=== PATIENT | female | born 1960 | race Caucasian/White ===

== ENCOUNTER → 2017-10-17 | Outpatient (CLI) | payer BC | LOC: M LRY 09:54 | DX: R05 Cough (principal) | CPT/HCPCS: 71046 ==

== ENCOUNTER → 2017-10-17 | Outpatient (REF) | payer BC ==
[2017-10-17 20:47] LABS: INFLUENZA A AMPLIFICATION NEGATIVE (NEGATIVE); INFLUENZA B AMPLIFICATION NEGATIVE (NEGATIVE)
== END ==
LOC: M SFHCLERA 11:54
DX: R53.81 Other malaise (principal)
CPT/HCPCS: 87502

== ENCOUNTER → 2018-12-15 | Outpatient (CLI) | payer BC ==
[~2018-12-15] MED LIST: GLIP10TA PO; LEVO-96 PO; METF-839 PO; MULTCAP PO; VITA500054 PO
[2018-12-15 10:30] LABS: BLOOD UREA NITROGEN 10 MG/DL (7-18); CALCIUM LEVEL 9.1 MG/DL (8.5-10.1); CARBON DIOXIDE LEVEL 29 MEQ/L (21-32); CHLORIDE LEVEL 105 MEQ/L (98-107); CREATININE FOR GFR 0.76 MG/DL (0.55-1.30); GLOMERULAR FILTRATION RATE > 60.0 (>51); GLUCOSE, FASTING 275 MG/DL (70-100); POTASSIUM SERUM 4.1 MEQ/L (3.5-5.1); SODIUM LEVEL 139 MEQ/L (136-145)
--- NOTE | 2018-12-15 20:44 | ECGEPIP ---
Stationary ECG Study [facility] Test Date: 2018-12-15 Pat Name: ALESSANDRO FENG Department: Room: - Gender: F Mach[employer]: [facility] : 1960 Requested By: CAMILA Rehman Order Number: [id number] Reading MD: Yvan Goldstein Measurements Intervals [place] Rate: 74 P: 55 CO: 166 QRS: -11 QRSD: 82 T: 32 QT: 369 QTc: 412 Interpretive Statements Normal sinus rhythm LA conduction disturbance? Leftward axis Slow precordial R-wave progression; rule out prior septal injury. No prior tracing for comparison. Clinical correlation advised. Electronically Signed On 12-15-2018 20:44:05 EDT by Yvan Goldstein
== END ==
LOC: M LAB 09:34
PROVIDERS: ATTEND Orthopaedic Surgery
DX: Z01.810 Encounter for preprocedural cardiovascular examination (principal); E11.9 Type 2 diabetes mellitus without complications

== ENCOUNTER 2018-12-30 08:40 | Day surgery (SDC) | payer BC ==
[~2018-12-30] VITALS: Ht 160 cm; Wt 97.5 kg
[2018-12-30] MEDS ORDERED: ROPIvacaine 0.5% 30 ML INJECTION (J2795 PER 1MG) ONE (08:41)
[2018-12-30] MEDS ORDERED: dexameTHASONE 10 MG/1 ML VIAL PRES.FREE (J1100) ONE (08:41)
[2018-12-30] MEDS ORDERED: EPINEPHrine INJ 1 MG/ML 1ML AMP ONE (08:41)
[2018-12-30] MEDS ORDERED: PROPOFOL 200 MG/20 ML VIAL As Ordered ONE (08:59)
[2018-12-30] MEDS ORDERED: ROCURONIUM BROMIDE 50 MG/5 ML VIAL As Ordered ONE (08:59)
[2018-12-30] MEDS ORDERED: MIDAZOLAM INJ 2 MG/2 ML VIAL (J2250) As Ordered ONE ×2 (08:59→09:35)
[2018-12-30] MEDS ORDERED: dexameTHASONE 4 MG/ML 1ML VIAL (J1100) As Ordered ONE (08:59)
[2018-12-30] MEDS ORDERED: fentaNYL 100 MCG/2 ML INJECTION (J3010) As Ordered ONE ×2 (08:59→09:35)
[2018-12-30] MEDS ORDERED: ONDANSETRON 4MG/2ML VIAL (J2405) As Ordered ONE ×2 (08:59→13:44)
[2018-12-30] MEDS ORDERED: LIDOCAINE 2% INJ 100 MG/5 ML SDV (FOR ANES.) As Ordered ONE (08:59)
[2018-12-30] MEDS ORDERED: LR 1,000 ML IV ONE (09:00)
[2018-12-30] MEDS ORDERED: MIDAZOLAM INJ 2 MG/2 ML VIAL (J2250) IV ONE (10:45)
[2018-12-30] MEDS ORDERED: fentaNYL 100 MCG/2 ML INJECTION (J3010) IV ONE (10:45)
[2018-12-30] MEDS ORDERED: PHENYLephrine HCL 500 MCG/5 ML (100MCG/ML) SYRINGE (J2370) As Ordered ONE (11:58)
[2018-12-30] MEDS: EPINEPHrine 1MG/ML INJ 30ML MD-VIAL As Ordered ONE (12:00)
[2018-12-30] MEDS ORDERED: METOCLOPRAMIDE INJ 10MG/2ML VIAL (J2765) As Ordered ONE (12:02)
[2018-12-30] MEDS ORDERED: ePHEDrine SULFATE 25 MG/5 ML(5MG/ML) SYRINGE As Ordered ONE (12:13)
[2018-12-30] MEDS ORDERED: NEOSTIGMINE 10 MG/10 ML VIAL (J2710) As Ordered ONE (12:30)
[2018-12-30] MEDS ORDERED: GLYCOPYRROLATE INJ 0.2 MG/ML 2 ML VIAL As Ordered ONE (12:30)
[2018-12-30] MEDS ORDERED: ESMOLOL INJ 100MG/10ML VIAL As Ordered ONE (13:54)
[2018-12-30] MEDS ORDERED: HumaLOG INSULIN (NovoLOG) PER UNIT As Ordered ONE (14:20)
[2018-12-30] MEDS ORDERED: NORCO, ANEXSIA 5/325MG TABLET (HYDROcodone/ACETAMINOPHEN) PO PRN (14:30)
[2018-12-30] MEDS ORDERED: HumaLOG INSULIN (NovoLOG) PER UNIT SC ONE (14:30)
[2018-12-30] MEDS ORDERED: fentaNYL 100 MCG/2 ML INJECTION (J3010) IV PRN (14:30)
[2018-12-30] MEDS ORDERED: ONDANSETRON 4MG/2ML VIAL (J2405) IV PRN (14:30)
[2018-12-30] MEDS ORDERED: LR 1,000 ML IV SCH ×2 (14:30→14:45)
[2018-12-30 16:26] VITALS: BP 133/70
--- NOTE | 2019-01-05 09:23 | RO ---
DATE OF PROCEDURE: 12/30/2018 PREOPERATIVE DIAGNOSES: 1. Right shoulder partial thickness rotator cuff tear. 2. Right shoulder biceps tendonitis. 3. Right shoulder acromioclavicular (AC) joint arthritis. 4. Right shoulder impingement. POSTOPERATIVE DIAGNOSES 1. Right shoulder high-grade partial thickness rotator cuff tear. 2. Right shoulder long head biceps tendonitis. 3. Right shoulder AC joint arthritis. 4. Right shoulder impingement. PROCEDURES PERFORMED: 1. Right shoulder arthroscopic rotator cuff repair. 2. Right shoulder open subpectoral biceps tenodesis. 3. Right shoulder arthroscopic extensive debridement including labral debridement, synovectomy, subacromial decompression with acromioplasty. 4. Right shoulder arthroscopic distal clavicle excision. SURGEON: Dr. Chapin Velez DIVER'S TENDER: JOSS De Leon ANESTHESIA: General with preoperative nerve block. IV FLUIDS: Lactated Ringer's. ESTIMATED BLOOD LOSS: 10 mL IMPLANTS: Arthrex proximal biceps button times one, Arthrex BioComposite corkscrew times one, Arthrex 4.75 mm Peak SwiveLock anchor times two. CLOSURE: Monocryl nylon. DESCRIPTION OF PROCEDURE: Patient identified in preoperative holding area. The right shoulder marked by myself. She had a nerve block by anesthesia. She was brought to the operating room, placed supine on a well-padded operating room (OR) table. General anesthesia was induced. She received appropriate IV antibiotics within 1 hour of incision. Exam under anesthesia revealed 170 degrees of forward flexion, 80 of external rotation and no increased anterior-posterior translation. She was then placed into the left side down lateral decubitus position with an axillary roll and all bony prominences well padded. Bilateral Venodyne boots for deep venous thrombosis (DVT) prophylaxis. The right arm was placed into the Arthrex star sleeve lateral decubitus traction device with 10 pounds of traction. The right shoulder was then prepped and draped in the normal sterile fashion with ChloraPrep. Prior to incision, time-out was performed per hospital protocol. Again she received appropriate IV antibiotics within 1 hour of incision. Doris was present the entire procedure and participated in all essential portions of the procedure. This included patient positioning, draping, holding retractors, holding the arthroscope, assisting with performing the tenotomy at the biceps tendon, positioning the arm during the tenodesis, wound closure and retrieving sutures as well as placing anchors. The right shoulder was insufflated with lactated Ringer's. A standard posterior viewing portal made with an 11-blade. 30 degrees arthroscope introduced into the joint atraumatically. Diagnostic arthroscopy carried out revealing degenerative tearing of the anterior labrum. There was synovitis with some longitudinal tearing of the long head of biceps tendon. Posterior labrum intact. No significant chondromalacia. The posterior rotator cuff was intact. There was some low grade tearing of the articular portion of the supraspinatus. No tearing of the subscapularis. An anterior working portal was established in the rotator interval. Purple Arthrex cannula placed. The biceps tendon was brought into the joint where there was further evidence a longitudinal tearing of the biceps. Given the patient's preoperative symptoms and intraoperative findings, she was indicated for biceps tenodesis. A tenotomy of the biceps was performed with a meniscal punch and the shaver was then used to perform a debridement of the residual tendon stump as well as a debridement of the anterior superior labrum. The subscapularis was carefully inspected. There is no tearing. No lift off with the posterior lever push maneuver. I then proceeded with an open biceps tenodesis. 15 blade used to make an incision just lateral to the axilla. Dissection down to the biceps fascia which was carefully opened with Metzenbaum scissors. There right angle clamp was used to dissect out the long head biceps tendon and was retrieved uneventfully. The Arthrex proximal biceps kit was opened. A running locking whip stitch placed with the FiberLoop. Excess tendon trimmed and sent for pathology. Sutures were then loaded through the button per routine. A drill hole was made with a spade tip drill bit within the bicipital groove about 1 cm proximal to the lower edge of the pectoralis major tendon. Irrigation used to remove bony debris. Button was passed through the drill hole on its lens inserter. The suture was then toggled to flip the button and the tendon was docked along the bicipital groove. This nicely restore the resting tension. The curve free needle was used to pass one limb of FiberWire back through the tendon and knots were tied by hand to lock the construct in place. This again nicely restored the resting tension. Incision was extensively irrigated normal saline and then closed in layered fashion with #2-0 Vicryl for deep fascial closure,#2-0 subcuticular closure and a running Monocryl. The Steri-Strips were placed at the end of the case. The arthroscope was then placed into the subacromial space where there was extensive bursitis. Lateral working portal was established and a bursectomy was performed with shaver and cautery. There was very high-grade bursal-sided tearing of the supraspinatus. I performed a rotator cuff debridement with the shaver. A switching stick was used to manipulate the tendon and I was able to easily penetrate into the joint confirming this was a near full thickness tear. The cautery was then used to further turn this into a full-thickness tear clearing out the anterior portion of the greater tuberosity. Curette used to remove soft tissue to create a bleeding surface. Percutaneously placed a 5/5 corkscrew with suture tape which was then passed in a horizontal mattress fashion with the scorpion. I then proceeded with lateral row fixation. The anterior limb of each strain of suture was then brought out through the lateral portal, loaded through 4.75 mm picks Peak SwiveLock anchor and all used to create a socket and the anchor docked, sutures tensioned, anchor inserted by hand with excellent fixation. These steps were repeated with the posterior limb from each suture strand and these steps repeated with a second 4.75 mm Peak SwiveLock anchor further posterior in the tuberosity. This completed the double row repair. There were no dog ears. The shoulder was gently rotated. There is no lift off or buckling. There was a very large subacromial spur and a bur was used to perform a formal acromioplasty turning this into a type 1 morphology. I then proceeded with an arthroscopic distal clavicle excision. The bur was used to remove 7-8 mm from the distal clavicle. Arthroscope was intermittently placed into the anterior portal to confirm a complete decompression. Shoulder was irrigated and drained. Portals closed with nylon suture. Bulky sterile dressing applied. She was carefully positioned into the ARC 2 sling. She was extubated, transferred to postanesthesia care unit (PACU) in stable condition. All counts correct times two. Complications none.
== END 2018-12-30 16:26 | disposition home or self-care (01) ==
LOC: M SDC 08:40
PROVIDERS: ATTEND Orthopaedic Surgery
DX: M75.111 Incomplete rotator cuff tear or rupture of right shoulder, not specified as traumatic (principal); M75.21 Bicipital tendinitis, right shoulder; M19.011 Primary osteoarthritis, right shoulder; M75.41 Impingement syndrome of right shoulder; E11.9 Type 2 diabetes mellitus without complications; E03.9 Hypothyroidism, unspecified; M12.9 Arthropathy, unspecified; L85.3 Xerosis cutis; R06.83 Snoring; E66.9 Obesity, unspecified; Z79.899 Other long term (current) drug therapy; Z85.3 Personal history of malignant neoplasm of breast; Z92.3 Personal history of irradiation; Z68.38 Body mass index [BMI] 38.0-38.9, adult
CPT/HCPCS: 23430; 29824; 29826; 29827; 88304; C1713; J0690; J1100; J2250; J2370; J2405; J2710; J2765; J2795; J3010